=== PATIENT | male | born 1965 | race Caucasian/White ===

== ENCOUNTER 2017-03-08 11:03 | Day surgery (SDC) | payer OTHER ==
[2017-03-08] VITALS (13 sets, daily range): BP systolic 130–156; BP diastolic 75–98; PULSE 86–96; RESP 16–34; Ht 180.3 cm; Wt 130.0 kg
[~2017-03-08] VITALS: Ht 180.3 cm; Wt 130.0 kg
[~2017-03-08 11:03] MED LIST: CEFTRIAXONE 1 GM/NS 50 ML IVPB ONE; DIAZ10TA4 PO; HYDR25TA6 PO; TAMS0.4C2 PO; XANAX PO
[2017-03-08] MEDS ORDERED: BENA10TA48 PO (11:50)
[2017-03-08] MEDS ORDERED: OMEP20CA16 PO (11:50)
[2017-03-08] MEDS ORDERED: LORA1TAB PO (11:50)
[2017-03-08] MEDS ORDERED: ASPI-664 PO (11:50)
[2017-03-08] MEDS ORDERED: DICL75TA2 PO (11:50)
[2017-03-08] MEDS ORDERED: PROPOFOL 20 ML ONE (12:15)
[2017-03-08] MEDS ORDERED: FENTAnyl 50 MCG/ML VIAL ONE (12:15)
[2017-03-08] MEDS ORDERED: ONDANSETRON 4 MG INJ ONE (12:15)
[2017-03-08] MEDS ORDERED: SUCCINYLCHOLINE CHLORIDE 100 MG/5 ML SYG IV ONE (12:15)
[2017-03-08] MEDS ORDERED: ROCURONIUM 50 MG INJ ONE (12:15)
--- NOTE | 2017-03-08 12:28 | HPN ---
Date/Time of Note Date/Time of Note DATE: 03/08/17 TIME: 12:28 Interval H&P Admission Note Pt. seen H&P reviewed: No system changes ALONZO WEST MD Mar 08, 2017 12:28
[2017-03-08] MEDS ORDERED: MEPERIDINE 25 MG INJ IV PRN (13:00)
[2017-03-08] MEDS ORDERED: HYDROmorphONE (0.2 MG/ML) 10ML SYG IV PRN ×2 (13:00)
[2017-03-08] MEDS ORDERED: ONDANSETRON 4 MG INJ IV PRN (13:00)
[2017-03-08] MEDS ORDERED: hydrALAzine 20 MG INJ IV PRN (13:00)
[2017-03-08] MEDS ORDERED: FENTAnyl 50 MCG/ML VIAL IV PRN ×2 (13:00)
[2017-03-08] MEDS ORDERED: LABETALOL HCL 20MG INJ IV PRN (13:00)
[2017-03-08] MEDS ORDERED: LIDOCAINE 1% (MPF) 30 ML INJ ONE (13:05)
--- NOTE | 2017-03-08 13:52 | OPR ---
Date/Time of Note Date/Time of Note DATE: 03/08/17 TIME: 13:39 Operative Report Procedure Date: Mar 08, 2017 Preoperative Diagnosis Urinary retention possible urethral stricture and possible benign prostatic hypertrophy was obstruction Postoperative Diagnosis Urethral stricture it was a very severe only allows about 4 Dominican size Operation Performed Internal urethrotomy under direct vision Surgeon: ALONZO WEST MD Anesthesia: general Anesthesiologist: LAI PLASENCIA MD Estimated Blood Loss: minimal Specimens urine for C&S Complications: None Pt Condition Post Procedure: stable Indications Urinary retention and difficulty possible to insert the Crawford catheter from him before during his emergency room presentation at [facility] Operative\Procedure Findings Severe urethral stricture Procedure Description Patient was brought to the operating room general endotracheal anesthesia was induced. Patient received 1 g of ceftriaxone IV at the start of the procedure. Timeout was done , patient was identified by his name and date and the procedure. The suprapubic tube that he had was removed and replaced with a new one, a 16 Dominican catheter. Then the genital area was prepped and draped in the usual sterile manner the visual urethrotome with a 0 lens was introduced under direct vision into the penile urethra. Severe urethral stricture was identified. I tried to pass a 4 Dominican whistle tip catheter into it. That was not possible then I tried a 0.035 Glidewire and that also would not go in because of the tortuosity of the urethra and the stricture itself. Then I went ahead and started the urethrotomy at the 12 o'clock position and I was able to visualize the lumen of the urethra and completed the urethrotomy then I was able to see the proximal urethra, the membranous urethra and the prostate and then I advanced the scope into the bladder. The prostate was not large but he had mild bladder neck contracture , the bladder itself appeared to be normal . There was no evidence of bladder tumor , ulcerations or stones. Then I removed the urethrotome and did the cystoscopy using the 22 Dominican cystoscope sheath and the 30 lens then I did look inside the bladder with with the 70 lens and all the above mentioned findings were confirmed. The scope was then removed and a #20 Dominican Crawford catheter was inserted into the bladder, connected to a drainage bag, the balloon inflated with 10 mL of sterile water. Then I deflated the balloon of the suprapubic tube and removed it and put a sterile dressing over the suprapubic area and the patient was transferred to recovery room in a stable and satisfactory condition. ALONZO WEST MD Mar 08, 2017 13:51
[2017-03-08] MEDS: HYDROmorphONE (0.2 MG/ML) 10ML SYG IV PRN ×3 (13:53→14:20)
[2017-03-08] MEDS ORDERED: HYDROCODONE/APAP (10/325) TAB PO PRN (14:30)
== END 2017-03-08 16:15 | disposition home or self-care (01) ==
LOC: SDS 11:03
PROVIDERS: ATTEND Urology
DX: N35.9 Urethral stricture, unspecified (principal); I10 Essential (primary) hypertension; Z86.73 Personal history of transient ischemic attack (TIA), and cerebral infarction without residual deficits; E66.01 Morbid (severe) obesity due to excess calories; Z68.41 Body mass index [BMI] 40.0-44.9, adult
CPT/HCPCS: 52276; 87086; J0696; J1170; J2175; J2405; J3010; J7999; Z7512; Z7610